=== PATIENT | female | born 1950 | race African-American/Black ===

== ENCOUNTER → 2016-03-30 | Outpatient (CLI) | payer OTHER ==
--- NOTE | 2016-04-06 10:49 | Diagnostic Imaging Report ---
Indication: SCREEN Technique: Bilateral Craniocaudal and mediolateral oblique views were obtained. Comparison: 02/05/2015, 08/10/2014, 01/29/2014, 07/14/2013 Findings: The breasts are mostly fat. No parenchymal asymmetry nor architectural distortion. There are benign calcifications on the left. No dominant masses nor suspicious clustered microcalcifications. No skin thickening nor nipple retraction. No axillary adenopathy. No significant interim change. Impression: No mammographic evidence of malignancy. Routine annual rescreening recommended. BI-RADS category 2-benign. Breast density BI-RADS type A
== END | disposition home or self-care (01) ==
LOC: MAMMO 08:48
DX: Z12.31 Encounter for screening mammogram for malignant neoplasm of breast (principal)
CPT/HCPCS: 77067